=== PATIENT | female | born 1995 | race Caucasian/White ===

== ENCOUNTER 2022-12-19 18:25 | Emergency (ER) | payer BC, SELFPAY ==
[2022-12-19 18:36] VITALS: BP 143/95; PULSE 86; RESP 18; TEMP 37.1; O2SAT 100
--- NOTE | 2022-12-19 18:48 | ED.NECK ---
HPI - Neck Pain/Injury General Chief Complaint: Neck Pain/Injury Stated Complaint: neck popped/has stroke like symptoms Source: patient, RN notes reviewed and other (boyfriend) History of Present Illness HPI Narrative: 27 yo F presents to urgent care with boyfriend at side. Pt states at 16:50 today, she was sitting at her desk at work when she popped her neck. Pt states the right side of her neck popped and immediately had left lateral neck and left arm pain, accompanied with slurred speech, dysphasia, numbness to her left cheek, and feeling off balance. Pt states she attempted to stand up and fell, catching herself. Pt states she was nauseated and had a slight left sided [place] on the way here but all of her symptoms are subsiding. Pt states all of her symptoms are gone except the left lateral neck and arm pain. 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 Pt is being seen by neurology. Review of Systems Review of Systems: CONSTITUTIONAL: Denies fever, chills, or sweats. EYES: Denies visual changes, redness, or discharge. ENT: Denies otalgia and sore throat CARDIOVASCULAR: Denies chest pain, palpitations, or edema. RESPIRATORY: Denies cough or dyspnea. GASTROINTESTINAL: Denies abdominal pain, nausea, vomiting, or diarrhea. GENITOURINARY: Denies dysuria or hematuria. SKIN: Denies rash or itching. MUSCULOSKELETAL: Left lateral neck and arm pain NEUROLOGIC: Denies headache, numbness, or weakness. Pertinent positives per HPI. PMFSH Comments At the time of my signature, I reviewed and agree with the nursing past medical, surgical, social, and family history. There is no relevant family history pertinent to the patient complaint. Exam Narrative: GENERAL: This is a well-nourished, well-developed patient, in no apparent distress. HEAD: normocephalic, atraumatic. EYES: Sclera clear/white. Vision is grossly intact. PERRL EARS: External ears normal, auditory canals clear and without drainage, TMs normal without perforation. Hearing grossly intact. NOSE: External nose normal with no obvious nasal discharge, nares without redness, no rhinorrhea. THROAT: Mucous membranes moist, posterior pharynx clear. NECK: Neck supple, non-tender without lymphadenopathy, masses or thyromegaly. CARDIOVASCULAR: Regular rate and rhythm without murmurs, gallops, or rubs. RESPIRATORY: Clear to auscultation. Breath sounds equal bilaterally. No wheezes, rales, or rhonchi. SKIN: warm, intact with no suspicious lesions or rash, good texture and turgor. NEURO: awake, alert, and oriented to person, place and time. Speech is clear. No dysphasia noted. Pt's gait was stable with assistance. 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 Face is symmetrical. EXTREMITIES: No clubbing, cyanosis, or edema. No joint tenderness, effusion, or edema noted. BACK: Nontender without deformity or crepitus. No flank tenderness. Course Course Level of Care: Express Care Visit Vital Signs Vital signs: Vital Signs Temperature 98.8 F 12/19/22 18:36 Pulse Rate 86 12/19/22 18:36 Respiratory Rate 18 12/19/22 18:36 Blood Pressure 143/95 H 12/19/22 18:36 Pulse Oximetry 100 12/19/22 18:36 Oxygen Delivery Room Air 12/19/22 18:36 Temperature 98.8 F 12/19/22 18:36 Pulse Rate 86 12/19/22 18:36 Respiratory Rate 18 12/19/22 18:36 Blood Pressure 143/95 H 12/19/22 18:36 Pulse Oximetry 100 12/19/22 18:36 Oxygen Delivery Room Air 12/19/22 18:36 reviewed MDM - Neck Pain/Injury MDM Narrative Medical decision making narrative: Discussed with pt and boyfriend reasons why she should be transferred to the ER tonight. Pt agrees to go to [facility] ED. Offered pt an ambulance and pt declined. Pt stating her symptoms are resolving like they have in the past. VSS. Pt ambulatory
== END 2022-12-19 18:56 | disposition short-term general hospital (02) ==
PROVIDERS: Emergency Provider Nurse Practitioner Family
DX: M54.50 Low back pain, unspecified (principal)
CPT/HCPCS: 99212; G0463